=== PATIENT | male | born 1975 | race Hispanic/Latino ===

== ENCOUNTER 2016-06-12 05:48 | Emergency (ER) | payer SELFPAY ==
[2016-06-12 06:00] LABS: EOSINOPHIL (%) 1.4 % (0-5); EOSINOPHIL COUNT 0.1 K/uL (0-0.3); HEMATOCRIT 40.3 % (38.0-50.0); IMMATURE GRANULOCYTE (%) 0.1 % (0.0-0.7); INSTRUMENT ABS NEUTROPHIL CT 6.9 K/uL; LYMPHOCYTE COUNT 2.3 K/uL (1.0-2.8); MCH 27.7 PG (29.0-34.0); MCHC 33.5 G/DL (30.0-36.0); MCV 82.8 FL (86-99); MEAN PLAT.VOLUME 12.7 uM^3 (9.0-12.4); MONOCYTE (%) 8.3 % (3-12); MONOCYTE COUNT 0.9 K/uL (0-0.8); NEUTROPHIL (%) 67.5 % (45-76); NEUTROPHIL COUNT 6.9 K/uL (1.8-6.4); PLATELET COUNT 168 K/uL (156-360); RBC DIS.WIDTH-CV 12.9 % (11.8-14.6); RBC DIS.WIDTH-SD 38.9 % (39-53); RED BLOOD COUNT 4.87 M/uL (4.00-5.50); WHITE BLOOD COUNT 10.3 K/uL (4.1-10.2)
[2016-06-12 06:11] LABS: AMYLASE 76 IU/L (1-118); CHLORIDE 104 mEq/L (99-109); POTASSIUM 3.5 mEq/L (3.7-5.4); SODIUM 140 mEq/L (136-147)
[2016-06-12 06:12] LABS: GLUCOSE 105 mg/dL (70-99)
[2016-06-12 06:14] LABS: ANION GAP 12 MEQ/L (2-14)
[2016-06-12 06:16] LABS: SERUM ETHYL ALCOHOL < 10 mg/dL
[2016-06-12 06:17] LABS: UREA NITROGEN (BUN) 13 mg/dL (9-23)
[2016-06-12 06:18] LABS: GFR ESTIMATE (CALCULATED) > 59 mL/min/
[2016-06-12 06:19] LABS: LIPASE 13 U/L (1.0-51.0)
[2016-06-12 06:54] LABS: ADD MIUA? NO; BILIRUBIN NEGATIVE; BLOOD NEGATIVE; COLOR YELLOW ((YELLOW)); GLUCOSE (STRIP) NEGATIVE; KETONES NEGATIVE; LEUKOCYTES NEGATIVE; NITRITE NEGATIVE; PROTEIN (STRIP) NEGATIVE; SPECIFIC GRAVITY 1.019 (1.000-1.030); UCUL ADDED? NO; UROBILINOGEN 0.2 MG/DL (0.2-1.0)
[2016-06-12 07:02] LABS: AMPHETAMINE NEGATIVE (500 ng/mL); BARBITURATES NEGATIVE (200 ng/mL); BENZODIAZEPINES NEGATIVE (150 ng/mL); COCAINE NEGATIVE (150 ng/mL); INTERNAL CONTROLS VALID? YES; METHADONE NEGATIVE (200 ng/mL); METHAMPHETAMINE NEGATIVE (500 ng/mL); OPIATES (MORPHINE) NEGATIVE (100 ng/mL); OXYCODONE NEGATIVE (100 ng/mL); PHENCYCLIDINE NEGATIVE (25 ng/mL); PROPOXYPHENE NEGATIVE (300 ng/mL); THC CANNABINOIDS NEGATIVE (50 ng/mL); TRICYCLIC ANTIDEPRESSANTS NEGATIVE (300 ng/mL)
== END 2016-06-12 08:13 | disposition home or self-care (01) ==
LOC: TRA 05:48
PROVIDERS: Emergency Medicine
DX: S41.112A Laceration without foreign body of left upper arm, initial encounter (principal); S71.111A Laceration without foreign body, right thigh, initial encounter; S61.216A Laceration without foreign body of right little finger without damage to nail, initial encounter; X99.8XXA Assault by other sharp object, initial encounter; Y92.524 Gas station as the place of occurrence of the external cause
CPT/HCPCS: 71010; 80048; 81003; 82150; 83690; 85025; 86850; 86900; 86901; 99281; 99285; G0480